=== PATIENT | female | born 1985 | race Hispanic/Latino ===

== ENCOUNTER 2021-06-13 11:06 | Emergency (ER) | payer SELFPAY ==
[2021-06-13 11:57] LABS: Absolute Lymphocytes (CBC) 2.6 K/uL (0.7-4.9); Basophils % 1.1 % (0-1.3); Hematocrit 40.8 % (36.0-45.0); Lymphocytes % 22.4 % (15.3-44.8); MPV 8.1 fL (7.6-11.3); RBC Red Blood Cell Count 4.96 M/uL (3.86-4.86)
[2021-06-13 12:14] LABS: Urine Blood 3+ (Negative); Urine Glucose Negative (Negative); Urine Protein Negative (Negative); Urine Specific Gravity >=1.030 (1.005-1.030); Urine pH 5.5 (5.0-7.0)
[2021-06-13 12:19] LABS: BUN Blood Urea Nitrogen 13 mg/dL (7-18); Bicarbonate 24 mmol/L (21-32); Glucose Level 107 mg/dL (74-106); Potassium 3.9 mmol/L (3.5-5.1); Sodium Level 136 mmol/L (136-145)
[2021-06-13 12:46] LABS: Urine Bacteria 20-50 /HPF (<20); Urine RBC <5 /HPF (NONE SEEN)
[2021-06-13 13:00] LABS: Protime INR 1.06
--- NOTE | 2021-06-13 13:04 | RAD REPORT ---
EXAM DESCRIPTION: US - Transvaginal OB - 06/13/2021 12:27 pm CLINICAL HISTORY: VAGINAL BLEEDING;Abd cramping, COMPARISON: Transvaginal OB dated 06/26/2016 TECHNIQUE: Endovaginal pelvic sonography performed. FINDINGS: Both ovaries are identified. Left ovary is more difficult to visualize. Blood flow is iden tified in the ovarian stroma. A thin wall 9 millimeter cystic structure present in the central right ovary. Ectopic is unlikely. This is most likely a right ovarian cyst. Minimal free fluid in the cul de sac. There is currently no adnexal mass to suspect ectopic . Uterine is retroflexed. There is an irregularly-shaped gestational sac with yolk sac seen in the lowe r uterine segment near the end sternal os of the cervix. No pole is identified. Small cystic ar eas along the cervical canal are believed be small nabothian cysts. IMPRESSION: Irregularly-shaped gestational sac lower uterine segment near the cervix. There is yolk sac but no pole. Currently no suspicion for adnexal mass to suspect ectopic . Findings are most likely an active or ongoing miscarriage. Sonographic re-evaluation can be performed if follow-up HCG values indicate ongoing .
--- NOTE | 2021-06-13 14:49 | ER ---
Nurse's Notes [facility] Name: Clarice Weiss Age: 35 yrs Sex: Female : 1985 Arrival Date: 06/13/2021 Time: 11:11 Bed 11 Private MD: Diagnosis: Threatened Presentation: 06/13 11:22 Chief complaint: Patient states: reports positive test on 06/07/21 and aa5 reports vaginal bleeding on Saturday that resolved but came back today. Pt also c/o abd cramping. Coronavirus screen: At this time, the client does not indicate any symptoms associated with coronavirus-19. Ebola Screen: No symptoms or risks identified at this time. Initial Sepsis Screen: Does the patient meet any 2 criteria? No. Patient's initial sepsis screen is negative. Does the patient have a suspected source of infection? No. Patient's initial sepsis screen is negative. Risk Assessment: Do you want to hurt yourself or someone else? Patient reports no desire to harm self or others. Onset of symptoms was June 2021. 11:22 Method Of Arrival: Ambulatory aa5 11:22 Acuity: PAMELA 3 aa5 Triage Assessment: 14:58 General: Appears in no apparent distress. comfortable, Behavior is calm, cooperative, ld1 appropriate for age. CHECK SCALER: 11:24 5, Full Term 0, Premature 2, 2, Living 2, LMP 05/14/2021, Irregular aa5 periods 14:00 5, Full Term 2, Premature 2, 2, Living 2, LMP 05/2021, cp Verified, EDC 02/09/2022, Gestational age from LMP: 5 weeks 4 days Historical: - Allergies: 11:26 Ranitidine HCl; aa5 - PMHx: 11:23 None; aa5 - PSHx: 11:23 Appendectomy; section; aa5 - Immunization history:: Client reports receiving the Ronn \T\ Ronn single-dose vaccine. - Social history:: Smoking status: Patient denies any tobacco usage or history of. Screenin:16 Abuse screen: Denies threats or abuse. Denies injuries from another. Nutritional ld1 screening: No deficits noted. Tuberculosis screening: No symptoms or risk factors identified. Fall Risk None identified. Assessment: 12:16 Obstetrical Assessment: General assessment: awake and alert, skin warm and dry. ld1 Reassessment: Patient appears in no apparent distress at this time. No changes from previously documented assessment. Patient and/or family updated on plan of care and expected duration. Pain level reassessed. Patient is alert, oriented x 3, equal unlabored respirations, skin warm/dry/pink. General:. General: Appears in no apparent distress. comfortable. Pain: Denies pain. : Reports vaginal bleeding that is light flow. Vital Signs: 11:24 BP 128 / 69; Pulse 89; Resp 16 S; Temp 97.5(TE); Pulse Ox 96% on R/A; Weight 68.95 kg aa5 (R); Height 5 ft. 0 in. (152.40 cm) (R); 12:16 BP 124 / 72; Pulse 84; Resp 18; Pulse Ox 97% on R/A; ld1 14:04 BP 126 / 70; Pulse 80; Resp 18; Pulse Ox 98% on R/A; ld1 11:24 Body Mass Index 29.69 (68.95 kg, 152.40 cm) aa5 ED Course: 11:11 Patient arrived in ED. am2 11:22 Arm band placed on. aa5 11:23 Triage completed. aa5 11:48 Dennis Salazar PA is PHCP. cp 11:48 Otis Bagley MD is Attending Physician. cp 12:14 Stephanie Mascorro, GISELL is Primary Nurse. ld1 12:16 Patient has correct armband on for positive identification. Bed in low position. Call ld1 light in reach. Side rails up X2. Pulse ox on. NIBP on. Door closed. Noise minimized. 12:16 No provider procedures requiring assistance completed. ld1 12:25 Transvaginal Ob In Process Unspecified. EDMS 12:47 Initial lab(s) drawn, sent to lab. gd 14:43 Assist provider with pelvic exam: Set up pelvic tray. Performed by Dennis MONTES aa5 Patient tolerated well. 14:48 Mikhail Ceron MD is Referral Physician. cp 14:59 IV discontinued, intact, bleeding controlled, No redness/swelling at site. ld1 Administered Medications: No medications were administered Point of Care Testing: Urine : 14:59 hCG Reading: Positive; ld1 Outcome: 14:48 Discharge ordered by . cp 14:58 Discharged to home ambulatory. ld1 14:58 Condition: stable 14:58 Discharge instructions given to patient, Instructed on discharge instructions, follow up and referral plans. medication usage, Demonstrated understanding of instructions, follow-up care, medications, Prescriptions given X 1. 14:59 Patient left the ED. ld1 Signatures: Dispatcher [employer] EDMisa Mcnair RN RN aa5 Dennis Salazar PA PA cp Moreno, Amanda am2 Stephanie Mascorro RN RN ld1 Marco Pinedo Corrections: (The following items were deleted from the chart) 11:24 11:23 PSHx: None; aa5 aa5
--- NOTE | 2021-06-13 14:49 | EDPHYS ---
Physician Documentation [facility] Name: Clarice Weiss Age: 35 yrs Sex: Female : 1985 Arrival Date: 06/13/2021 Time: 11:11 Bed 11 Private MD: ED Physician Otis Bagley HPI: 06/13 14:00 This 35 yrs old Female presents to ER via Ambulatory with complaints of cp Vaginal Bleeding, + Preg <12wks. 14:00 The patient presents to the emergency department with vaginal bleeding, that is cp moderate. 14:00 course: care: none, Leakage of Fluid: none appreciated, Ultrasound: cp the patient has not had an ultrasound. Previous pregnancies: in previous pregnancies patient has had. Associated signs and symptoms: Pertinent negatives: chest pain, diarrhea, dysuria, fever, nausea, vomiting. Patient reports taking home test that was positive. Patient reports having some vaginal bleeding 3 days ago that resolved, with vaginal bleeding returning today. RIBBON BLOCKMAKER: 11:24 5, Full Term 0, Premature 2, 2, Living 2, LMP 05/14/2021, Irregular aa5 periods 14:00 5, Full Term 2, Premature 2, 2, Living 2, LMP 05/2021, cp Verified, EDC 02/09/2022, Gestational age from LMP: 5 weeks 4 days Historical: - Allergies: 11:26 Ranitidine HCl; aa5 - PMHx: 11:23 None; aa5 - PSHx: 11:23 Appendectomy; section; aa5 - Immunization history:: Client reports receiving the Ronn \T\ Ronn single-dose vaccine. - Social history:: Smoking status: Patient denies any tobacco usage or history of. ROS: 14:05 Constitutional: Negative for body aches, chills, fever, poor PO intake. cp 14:05 Eyes: Negative for injury, pain, redness, and discharge. cp 14:05 Cardiovascular: Negative for chest pain, palpitations. 14:05 Respiratory: Negative for cough, shortness of breath, wheezing. 14:05 Abdomen/GI: Positive for abdominal cramps. 14:05 Back: Negative for pain at rest, pain with movement. 14:05 : Positive for vaginal bleeding, Negative for urinary symptoms. 14:05 Neuro: Negative for altered mental status, headache, loss of consciousness, syncope, weakness. 14:05 All other systems are negative. Exam: 14:10 Constitutional: The patient appears in no acute distress, alert, awake, non-toxic, well cp developed, well nourished. 14:10 Head/Face: Normocephalic, atraumatic. cp 14:10 Eyes: Periorbital structures: appear normal, Conjunctiva: normal, no exudate, no injection, Sclera: no appreciated abnormality, Lids and lashes: appear normal, bilaterally. 14:10 ENT: External ear(s): are unremarkable, Nose: is normal, Mouth: Lips: moist, Oral mucosa: moist, Posterior pharynx: Airway: no evidence of obstruction, patent. 14:10 Chest/axilla: Inspection: normal. 14:10 Cardiovascular: Rate: normal, Rhythm: regular, Edema: is not appreciated, JVD: is not appreciated. 14:10 Respiratory: the patient does not display signs of respiratory distress, Respirations: normal, no use of accessory muscles, no retractions, labored breathing, is not present, Breath sounds: are clear throughout, no decreased breath sounds, no stridor, no wheezing. 14:10 Abdomen/GI: Inspection: abdomen appears normal, Bowel sounds: active, all quadrants, Palpation: soft, in all quadrants, mild abdominal tenderness, in the right lower quadrant and left lower quadrant, rebound tenderness, is not appreciated, involuntary guarding, is not appreciated. 14:10 Back: CVA tenderness, is absent. 14:10 Skin: no rash present. 14:10 Neuro: Orientation: to person, place \T\ time. Mentation: is normal, Motor: moves all fours, strength is normal, Sensation: is normal. 14:25 : Pelvic Exam: External exam: is normal, Speculum exam: mild bleeding, no cervicitis, cp os that is closed, no tissue in cervix is seen, no tissue in vagina is seen, discharge, bloody, the nurse was present for the exam. Vital Signs: 11:24 BP 128 / 69; Pulse 89; Resp 16 S; Temp 97.5(TE); Pulse Ox 96% on R/A; Weight 68.95 kg aa5 (R); Height 5 ft. 0 in. (152.40 cm) (R); 12:16 BP 124 / 72; Pulse 84; Resp 18; Pulse Ox 97% on R/A; ld1 14:04 BP 126 / 70; Pulse 80; Resp 18; Pulse Ox 98% on R/A; ld1 11:24 Body Mass Index 29.69 (68.95 kg, 152.40 cm) [facility] MDM: 11:53 Patient medically screened. cp 14:00 Differential diagnosis: STD, ectopic . 14:47 Data reviewed: vital signs, nurses notes, lab test result(s), radiologic studies, cp ultrasound. 14:47 Counseling: I had a detailed discussion with the patient and/or guardian regarding: the cp historical points, exam findings, and any diagnostic results supporting the discharge/admit diagnosis, lab results, radiology results, the need for outpatient follow up, for definitive care, an OB/Gyne specialist, to return to the emergency department if symptoms worsen or persist or if there are any questions or concerns that arise at home. Response to treatment: the patient's symptoms have mildly improved after treatment. ED course: VSS. Discussed results of labs and radiology studies. US shows concern for inevitable miscarriage. Recommend OTC tylenol for pain, pelvis rest with no strenuous activities. Recommend recheck beta-hcg with RIBBON BLOCKMAKER in 48 hours. Return to ED worsening pain, worsening vaginal bleeding. 06/13 11:28 Order name: Abo/rh Typing; Complete Time: 13:16 [facility] 06/13 13:33 Interpretation: Reviewed. 06/13 11:28 Order name: Basic Metabolic Panel; Complete Time: 13:16 [facility] 06/13 13:32 Interpretation: Normal except: GLUC 107. 06/13 11:28 Order name: CBC with Diff; Complete Time: 13:16 [facility] 06/13 13:32 Interpretation: Normal except: WBC 11.40; RBC 4.96; MCV 82.3; MCH 26.5; EOSINOPHIL % cp 8.1; EOSA 0.9. 06/13 11:53 Order name: Urine Microscopic Only; Complete Time: 13:16 06/13 13:33 Interpretation: Normal except: UBACT 20-50; SQEPI 10-20. 06/13 11:53 Order name: PT-INR; Complete Time: 13:16 06/13 12:14 Order name: Urine Dipstick-Ancillary; Complete Time: 13:16 EDMO 06/13 13:33 Interpretation: Normal except: UBLD 3+; UESTR Trace. 06/13 11:28 Order name: IV Saline Lock; Complete Time: 11:41 aa5 06/13 11:28 Order name: Labs collected and sent; Complete Time: 11:41 aa5 06/13 11:28 Order name: NPO; Complete Time: 11:41 aa 06/13 11:28 Order name: Urine Dipstick-Ancillary (obtain specimen); Complete Time: 12:13 aa5 06/13 11:28 Order name: US Transvaginal Ob; Complete Time: 13:16 aa5 06/13 12:48 Order name: Urine Culture EDMO 06/13 14:43 Order name: Beta hcg; Complete Time: 17:40 cp 06/13 17:40 Interpretation: HCGQ 5803; Reviewed. 06/13 14:46 Order name: LAB Add On 06/13 11:53 Order name: Urine Test (obtain specimen); Complete Time: 12:13 06/13 14:11 Order name: Pelvic Exam Setup; Complete Time: 14:23 cp Administered Medications: No medications were administered Point of Care Testing: Urine : 14:59 hCG Reading: Positive; ld1 Disposition: 16:20 Co-signature as Attending Physician, Otis Bagley MD. [email or web address] Disposition Summary: 06/13/21 14:48 Discharge Ordered Location: Home cp Problem: new cp Symptoms: have improved cp Condition: Stable cp Diagnosis - Threatened cp Followup: cp - With: Mikhail Ceron MD - When: 48 Hours - Reason: Repeat Beta-HCG (48 Hours) Discharge Instructions: - Discharge Summary Sheet cp - Care cp - Threatened Miscarriage cp - Vaginal Bleeding During , First Trimester cp - Activity Restriction During cp Forms: - Medication Reconciliation Form cp - Thank You Letter cp - Antibiotic Education cp - Prescription Opioid Use cp Prescriptions: - 114-iron a-g-folate 1 20 mg iron- 1 mg Oral tablet - take 1 tablet by ORAL route once daily; 30 tablet; Refills: 0, Product cp Selection Permitted Signatures: Dispatcher [employer] EDOtis Mahan MD MD pkl Calderon, Audri, RN RN aa5 Dennis Salazar PA PA cp Corrections: (The following items were deleted from the chart) 11:24 11:23 PSHx: None; aa5 aa5 14:46 14:44 This 35 yrs old Female presents to ER via Ambulatory with complaints of cp Vaginal Bleeding, + Preg <12wks. cp
[2021-06-13 16:41] VITALS: TEMP 97.5
[2021-06-13 16:44] VITALS: BP 126/70; O2SAT 98
--- OUTSIDE RECORDS SUMMARY | 2021-06-17 18:06 | XMS REPORT | Continuity of Care Document ---
:1985 Author Organization [facility] t Address [facility] Julio Cesar Moreira [address] [place] [address] Care Team Providers Name Role Phone JOY HAIRSTON Primary Care Physician Unavailable Louann WILEY Attending Clinician Unavailable Doctor Unassigned, Name Attending Clinician Unavailable Gennaro PITTS Attending Clinician Tariq BURDICK Attending Clinician Unavailable Payers Payer Name Policy Type Policy Number Effective Date Expiration Date S ource CHIP SHERRY PENDING PENDING 2021 00:00:00 Advance Directives Directive Decision Effective Termination Comments Source Date Date Healthcare Agents on N/A [facility] FileNameRelationshipHealthcare [facility] Agent Medical RelationshipCommunicationRusk Rehabilitation CentertherCent[place] Care [phone] ([place]) Problems Condition Condition Condition Status Onset Resolution Last Treating Co mments Source Name Details Category Date Date Treatment Clinician Date Breakthrou Breakthrou Disease Active U nivers gh gh 7-12 ity of bleeding bleeding 00:00: [place] on on 00 Medical Depo-Prove Depo-Prove Br anch ra ra Other Other Disease Active Univers general general 7-20 [place] and advice 00 Co dical for for Branch contracept contracept wong wong management management Over Over Disease Active Univers weight weight 7-20 ity of 00:00: [place] 00 Medical Branch Nexplanon Nexplanon Disease Active Uni vers removal removal 7-20 ity of 00:00: [place] 00 Medical Branch Allergies, Adverse Reactions, Alerts Allergy Allergy Status Severity Reaction(s) Onset Inactive Treating Comm ents Source Name Type Date Date Clinician NO KNOWN Drug Active Univers ALLERGIE Class ity of S [facility] Social History Social Habit Start Date Stop Date Quantity Comments Source Alcohol intake 2021-02-13 2021-02-13 Current [facility] 00:00:00 00:00:00 non-drinker of [facility] alcohol [place] (finding) Tobacco use and 2016-09-28 2016-09-28 Never used Universit y of exposure 00:00:00 00:00:00 [facility] Sex Ass[birth year] Universit y of 00:00:00 00:00:00 [facility] Smoking Status Start Date Stop Date Source Never smoker [facility] Medications Ordered Filled Start Stop Current Ordering Indication Dosage Frequency Signature Comments Components Source Medication Medication Date Date Medication? Clinician (SIG) Name Name norgestimat Yes [id number] 1{tbl} Take 1 Univers e-ethinyl 7-12 tablet by ity o f estradioL 00:00: mouth [place] (TRI-PREVIF 00 daily. Medica l EM) Branch 0.18/0.215/ 0.25 mg-35 mcg (28) tablet norgestimat Yes [id number] 1{tbl} Take 1 Univers e-ethinyl 7-12 tablet by ity o f estradioL 00:00: mouth [place] (TRI-PREVIF 00 daily. Medica l EM) Branch 0.18/0.215/ 0.25 mg-35 mcg (28) tablet Immunizations Ordered Filled Immunization Date Status Comments Sour e Immunization Name Name Influenza Virus 2020-06-06 Completed Universit y of Vaccine Quad .5 mL 00:00:00 [facility] IM 6+ MO Branch Influenza Virus 2020-06-06 Completed Universit y of Vaccine Quad .5 mL 00:00:00 [facility] IM 6+ MO Branch TDAP 2016-11-23 Completed [facility] 00:00:00 [facility] TDAP 2016-11-23 Completed [facility] 00:00:00 [facility] PPD (TB) 2016-09-28 Completed University 00:00:00 [facility] PPD (TB) 2016-09-28 Completed [facility] 00:00:00 [facility] Procedures Procedure Date / Time Performed Performing Clinician Sour e ASSIGNMENT OF BENEFITS 2021 15:31:34 Doctor Unassigned, No [facility] Encounters Start End Encounter Admission Attending Care Care Encounter Source Date/Time Date/Time Type Type Clinicians Facility Department ID 2021-07-13 2021-07-13 Outpatient R [facility] [id number] Univers 09:00:00 09:00:00 ity [facility] 2021-07-03 2021-07-03 Outpatient R [facility] [id number] Univers 15:30:00 15:30:00 [id number] ity [facility] 2021 2021 [facility] [id number] Univers 09:30:00 11:00:41 STEFANIA marques o f [facility] 2021 2021 Orders Doctor RHIANNON [id number] Univers 00:00:00 00:00:00 Only Unassigned, VINI [id number] ity of [place] [facility] [id number] Saul as [phone] [address] 2021-06-10 2021-06-10 [facility] [id number] Univers 00:00:00 00:00:00 Sheila NUCLEAR SUPERVISING OPERATOR [id number] it y of [facility] [id number] Saul as MATERNAL [phone] Med ical & CHILD [address] [place] [address] 2021-05-24 2021-05-24 [facility] [id number] Univers 09:15:00 09:15:00 SHEILA marques [facility] Results This patient has no known results.
== END 2021-06-13 14:59 | disposition home or self-care (01) ==
LOC: ER 11:06
DX: O20.0 Threatened abortion (principal); Z88.8 Allergy status to other drugs, medicaments and biological substances
CPT/HCPCS: 36415; 76817; 80048; 81003; 81015; 84702; 85025; 85610; 86900; 86901; 87086; 87088; 99284